=== PATIENT | male | born 1985 | race Caucasian/White ===

== ENCOUNTER 2017-08-20 16:13 | Emergency (ER) | payer MEDICARE ==
[~2017-08-20] VITALS: Ht 185.4 cm; Wt 143.3 kg
[2017-08-20] MEDS ORDERED: KETOROLAC 30 MG/ML VIAL. ONE (16:44)
[2017-08-20] MEDS ORDERED: cefTRIAXone SODIUM 1 GM VIAL IV ONE (16:44)
[2017-08-20] MEDS ORDERED: LIDOCAINE 1% Multi-Dose 20 ML VIAL. ONE (16:45)
[2017-08-20] MEDS ORDERED: PENI500T PO (16:55)
[2017-08-20] MEDS ORDERED: NAPR-683 PO (16:55)
[2017-08-20] MEDS ORDERED: HYDR-971 PO (16:55)
--- NOTE | 2017-08-20 16:55 | PHYS DOC ---
Past History Past Medical History: Other Additional Past Medical Histor: chronic back pain Past Surgical History: No Surgical History Smoking: Quit Less Than 1 Year Alcohol Use: None Drug Use: None Adult General Chief Complaint Chief Complaint: DENTAL PROBLEM HPI HPI 32-year-old male patient complaining of left upper jaw and dental pain for the last 2 days as a constant pain that getting worse with chewing and talking to take his pain 10 over 10. Patient complaining of swelling of his face without fever and chills and shortness of breath. Patient states she has broken tooth about 2 months ago but did not follow up with her dentist. Review of Systems Review of Systems Constitutional: Denies fever or chills [] Eyes: Denies change in visual acuity, redness, or eye pain [] HENT: Denies nasal congestion or sore throat, reports dental pain[] Respiratory: Denies cough or shortness of breath [] Cardiovascular: No additional information not addressed in HPI [] GI: Denies abdominal pain, nausea, vomiting, bloody stools or diarrhea [] : Denies dysuria or hematuria [] Musculoskeletal: Denies back pain or joint pain [] Integument: Denies rash or skin lesions [] Neurologic: Denies headache, focal weakness or sensory changes [] Endocrine: Denies polyuria or polydipsia [] All other systems were reviewed and found to be within normal limits, except as documented in this note. Current Medications Current Medications Current Medications Medications (Trade) Dose Ordered Sig/Ilsa Start Time Stop Time Status Last Admin Dose Admin Ceftriaxone Sodium (Rocephin Im) 1 gm 1X ONCE 08/20/17 16:45 08/20/17 16:46 UNV Ceftriaxone Sodium (Rocephin) 1 gm STK-MED ONCE 08/20/17 16:44 08/20/17 16:45 DC Ketorolac Tromethamine (Toradol) 30 mg STK-MED ONCE 08/20/17 16:44 08/20/17 16:45 DC Lidocaine HCl 20 ml STK-MED ONCE 08/20/17 16:45 08/20/17 16:46 DC Allergies Allergies Allergies Coded Allergies Type Severity Reaction Last Updated Verified No Known Drug Allergies 08/20/17 No Physical Exam Physical Exam Constitutional: Well developed, well nourished, moderate distress, non-toxic appearance. [] HENT: Normocephalic, atraumatic, bilateral external ears normal, oropharynx moist, no oral exudates, nose normal, left lower jaw and fascial edema and mild erythema and tenderness, large dental cavity in the left upper molar #3 with tenderness and gum inflammation, remaining root in molar #4 in left upper jaw with tenderness and abscess. [] Eyes: PERRLA, EOMI, conjunctiva normal, no discharge. [] Neck: Normal range of motion, no tenderness, supple, no stridor. [] Cardiovascular:Heart rate regular rhythm, no murmur [] Lungs & Thorax: Bilateral breath sounds clear to auscultation [] Neurologic: Alert and oriented X 3, normal motor function, normal sensory function, no focal deficits noted. [] Psychologic: Affect normal, judgement normal, mood normal. [] Current Patient Data Vital Signs Vital Signs Date Time Temp Pulse Resp B/P (MAP) Pulse Ox O2 Delivery O2 Flow Rate FiO2 08/20/17 16:13 97.7 101 18 98 Room Air EKG EKG [] Radiology/Procedures Radiology/Procedures [] Course & Med Decision Making Course & Med Decision Making Evaluation of patient in ER showed 32-year-old male patient with dental abscess and facial cellulitis that treated with Rocephin IM and Toradol in ER and felt better. Patient instructed to follow up with his dentist in 7-10 days. Dragon Disclaimer Dragon Disclaimer This electronic medical record was generated, in whole or in part, using a voice recognition dictation system. Departure Departure: Impression: Primary Impression: Dental abscess Additional Impression: Facial cellulitis Disposition: HOME, SELF-CARE (at 1653) Condition: IMPROVED Referrals: PCP,NO (PCP) Patient Instructions: Cellulitis, Dental Abscess Additional Instructions: Follow-up with the dentist in 5-7 days Follow-up with your primary care physician in 3-5 days Return to ER if not getting better Scripts Naproxen (NAPROSYN) 500 Mg Tablet 1 TAB PO BID, #20 TAB 1 Refill Prov: RANJAN CALLES MD 08/20/17 Hydrocodone Bit/Acetaminophen (NORCO 5-325 TABLET) 1 Each Tablet 1 TAB PO PRN Q6HRS PRN for PAIN, #14 TAB 0 Refills Prov: RANJAN CALLES MD 08/20/17 Penicillin V Potassium (PENICILLIN V POTASSIUM) 500 Mg Tablet 1 TAB PO QID, #40 TAB Prov: RANJAN CALLES MD 08/20/17 Problem Qualifiers RANJAN CALLES MD August 20, 2017 16:55
[2017-08-20] MEDS ORDERED: KETOROLAC 60 MG/2 ML VIAL. IM ONE (17:00)
[2017-08-20] MEDS ORDERED: cefTRIAXone IM 1 GM VIAL IM ONE (17:00)
[2017-08-20 17:01] VITALS: BP 161/114
== END 2017-08-20 17:07 | disposition home or self-care (01) ==
LOC: ER 16:13
DX: K04.7 Periapical abscess without sinus (principal); L03.211 Cellulitis of face; G89.29 Other chronic pain; Z87.891 Personal history of nicotine dependence
CPT/HCPCS: 96372; 99284; J0696; J1885

== ENCOUNTER 2021-04-27 17:20 | Emergency (ER) | payer MEDICARE ==
[~2021-04-27] VITALS: Ht 185.4 cm; Wt 130.0 kg
[~2021-04-27 17:20] MED LIST: HYDR-3165 PO; NAPR-683 PO; PENI500T PO
[2021-04-27] MEDS ORDERED: IOHEXOL 350 MG/ML 100 ML VIAL. IV ONE (18:15)
--- NOTE | 2021-04-27 19:16 | PHYS DOC ---
Past History Past Medical History: Other Additional Past Medical Histor: chronic back pain, COVID+ 04/2021 (GUALBERTO BELLO) Past Surgical History: No Surgical History (GUALBERTO BELLO) Smoking: Quit Less Than 1 Year Alcohol Use: None Drug Use: None (GUALBERTO BELLO) General Adult EDM: Chief Complaint: LOWER EXT PAIN HPI: HPI: Patient is a 35 year old male who presents with 2-day history of shortness of breath and left lower extremity pain. Patient reports that he was COVID- positive 20 days ago. He states that his symptoms improved, he felt better and had no lingering symptoms. 2 days ago, his shortness of breath returned. He denies chest pain, palpitations and cough. He states that he does have left- sided low back pain with sciatica. Originally, he thought maybe his left lower extremity pain was related to that. Overall, he states he just feels "off" and "hazy." Patient is "prediabetic" on metformin, but he has been out of metformin for approximately 3 days. (GUALBERTO BELLO) Review of Systems: Review of Systems: Constitutional: Denies fever, chills or generalized weakness Eyes: Denies change in visual acuity, visual field deficits or discharge HENT: Denies ear pain, nasal congestion or sore throat Respiratory: See HPI Cardiovascular: Denies chest pain, palpitations or edema GI: Denies abdominal pain, nausea, vomiting, bloody stools or diarrhea : Denies dysuria or hematuria Musculoskeletal: See HPI Integument: Denies rash or other skin lesion Neurologic: Denies headache, focal weakness or sensory changes (GUALBERTO BELLO) Current Medications: Current Meds: Current Medications Medications (Trade) Dose Ordered Sig/Ilsa Start Time Stop Time Status Last Admin Dose Admin Iohexol (Omnipaque 350 Mg/ml) 100 ml 1X ONCE 04/27/21 18:15 04/27/21 18:30 DC 04/27/21 18:51 100 ML Lorazepam (Ativan Inj) 1 mg 1X ONCE 04/27/21 19:15 04/27/21 19:16 (GUALBERTO BELLO) Allergies: Allergies: Allergies Coded Allergies Type Severity Reaction Last Updated Verified No Known Drug Allergies 08/20/17 No (GUALBERTO BELLO) Physical Exam: PE: Constitutional: Obese, well-groomed, no acute distress, non-toxic appearance. HENT: Normocephalic, atraumatic, bilateral external ears normal, nose normal. Eyes: EOMI, conjunctiva normal, no discharge. Neck: Normal range of motion, no stridor. Cardiovascular: Heart rate regular rhythm, no murmur. Lungs & Thorax: Bilateral breath sounds clear to auscultation. Skin: Warm, dry, no erythema, no rash. Extremities: Bilateral distal lower extremities with some erythema, negative Homans' sign, no tenderness, no cyanosis, no clubbing, ROM intact, no pitting edema, distal pulses 2+ and symmetrical. Neurologic: Alert and oriented x4, steady and symmetrical gait, no focal deficits noted. (GUALBERTO BELLO) Current Patient Data: Vital Signs: Vital Signs Date Time Temp Pulse Resp B/P (MAP) Pulse Ox O2 Delivery O2 Flow Rate FiO2 04/27/21 17:45 98.2 80 16 166/103 (124) 99 Room Air (GUALBERTO BELLO) Radiology/Procedures: Radiology/Procedures: PROCEDURE: CT ANGIOGRAPHY CHEST EXAMINATION: CTA Chest With IV contrast INDICATION:35 years, Male, CTA left lower extremity pain, redness, evaluate for pulmonary embolism. COMPARISON: None. TECHNIQUE: Spiral CTA was obtained from the jugular notch through the posterior costophrenic recess. 3-D MIPS, sagittal and coronal reformats were obtained. Exposure: One or more of the following individualized dose reduction techniques were utilized for this examination: 1. Automated exposure control 2. Adjustment of the mA and/or kV according to patient size 3. Use of iterative reconstruction technique. FINDINGS: LUNGS/PLEURA: Central airways are patent. Multifocal patchy areas of groundglass opacities in the right upper, right middle, left upper and subpleural left lower lobes. No pleural effusion or pneumothorax. There is a 1.0 cm pleural-based nodule in the right middle lobe. Additional, few sub-5 mm solid pulmonary nodules in the left upper and lower lobes. For example 3 mm nodule in the left upper lobe series 4 image 50. MEDIASTINUM: Multiple nonspecific prominent to mildly enlarged mediastinal and bilateral lymph nodes, the largest measures 1.3 cm in short axis, likely r eactive. The thoracic aorta and pulmonary arteries are normal in caliber. Evaluation for pulmonary embolism is limited due to contrast bolus timing. No central pulmonary embolism to the proximal lobar level The heart is normal in size. No pericardial effusion. No detectable calcified coronary atherosclerosis. The visualized thyroid and the esophagus are unremarkable. AXILLA/SOFT TISSUE: Multiple prominent bilateral axillary lymph nodes Symmetric bilateral gynecomastia. UPPER ABDOMEN: The visualized upper abdomen appears unremarkable. BONES: No evidence of acute fractures or aggressive osseous lesions. IMPRESSION: 1. Evaluation for pulmonary embolism is limited due to contrast bolus timing. No central pulmonary embolism to the proximal lobar level. 2. Multifocal patchy areas of groundglass opacities throughout both lungs, greatest in the right upper lobe. Findings are suspicious for multifocal pneumonia. Consider correlation with Covid 19 test. 3. Multiple nonspecific prominent to mildly enlarged mediastinal and bilateral axillary lymph nodes, probably reactive. 4. 1.0 cm pleural-based solid pulmonary nodule in the right middle lobe. Additional, sub-5 mm pulmonary nodules in the left lung. Findings favor infectious/inflammatory etiology. Fleischner Society guidelines for management of incidental pulmonary nodule (Radiology 2017): Multiple solid nodules > 8 mm: LOW-RISK patient (minimal or absent history of smoking and other known risk factors): CT at 3-6 months, then consider CT at 18-24 months. HIGH-RISK patient (history of smoking or other known risk factors): CT at 3-6 months, then at 18- 24 months. Electronically signed by: Arcadio Beavers MD (04/27/2021 8:23 PM) JACKIE PROCEDURE: VENOUS LOWER EXTREMITY LEFT EXAMINATION: US DPLX VENOUS EXTREMITY LOWER LT INDICATION: Left lower extremity pain, nausea, evaluate for DVT. COMPARISONS: None TECHNIQUE: Grayscale, color and spectral Doppler evaluation of the Left lower extremity deep venous system(s) was performed. FINDINGS: Left common femoral, femoral and popliteal veins are normally compressible and demonstrate normally directed and appropriately phasic flow with augmentation. Normal flow is present within the saphenofemoral junctions and deep femoral vein in the proximal thigh and the posterior tibial and peroneal veins in the proximal calf. IMPRESSION: No left lower extremity deep venous thrombosis. Electronically signed by: Arcadio Beavers MD (04/27/2021 8:02 PM) [facility] (GUALBERTO BELLO) Heart Score: C/O Chest Pain: No (GUALBERTO BELLO) Course & Med Decision Making: Course & Med Decision Making Pertinent Labs and Imaging studies reviewed. (See chart for details) Patient is a 35-year-old male who presents with 2-day history of shortness of breath and left lower extremity pain. Patient has history of testing COVID- positive 20 days ago with complete symptom resolution. Work-up today will include CT angio chest and left lower extremity venous ultrasound. Patient became claustrophobic while attempting to obtain CT angio. Patient at that time refused to continue. I talked to the patient and discussed anxiolytic medication and reattempt. He agreed. Patient was given 1 mg Ativan IV and CTA was reattempted. Unfortunately, XRT informed me that his IV was flow rate limited, and so the study was suboptimal. Patient at this time refuses to repeat, so we will see what is readable on CTA. Venous ultrasound negative for DVT. CT angio, as previously discussed, was limited. However, multifocal pneumonia is seen. Additionally, there is a solitary nodule noted. Patient was notified of all findings and given instruction for follow-up, including repeat CT imaging. Patient was given treatment instruction including antibiotics and incentive spirometry as well as return precautions. He understands and is agreeable to discharge plan. (GUALBERTO BELLO) Course & Med Decision Making Did not see or evaluate patient. Did not discuss patient with [facility]. Agree with [facility]'s work-up and disposition per note. (ALONDRA OCHOA MD) Dragon Disclaimer: Dragon Disclaimer: This electronic medical record was generated, in whole or in part, using a voice recognition dictation system. (GUALBERTO BELLO) Departure Departure: Impression: Primary Impression: Atypical pneumonia Additional Impressions: Long COVID Elevated blood pressure reading Disposition: HOME / SELF CARE / HOMELESS Condition: STABLE Referrals: PCP,NO (PCP) Patient Instructions: Incentive Spirometer, Pneumonia, Adult, [id number], Pulmonary Nodule, [id number], Type 2 Diabetes Mellitus, Adult, [id number] Additional Instructions: EMERGENCY DEPARTMENT GENERAL DISCHARGE INSTRUCTIONS Thank you for coming to [facility] (ED) today and trusting us with you care. We trust that you had a positive experience in our Emergency Dep artment. If you wish to speak to the department management, you may call the director at [phone]. YOUR FOLLOW UP INSTRUCTIONS ARE FOLLOWS: 1. Follow up with your primary care doctor. If you do not have a primary doctor, please ask for a resource list of physicians or clinics that may be able to assist you with follow up care. It is recommended that you have a CT of your chest repeated in 3-6 months and then again in 18-24 months due to your smoking history paired with the nodule seen on CT today. 2. The emergency provider has interpreted your images. The radiology personnel placement specialist also reviewed them. If there is a change in the findings, you will be notified in 48 hours when at all possible. 3. A lab test or culture has been done, your results will be reviewed and you will be notified if you need a change in treatment. 4. Follow instructions verbalized to you and refer to the printouts if needed. ADDITIONAL INSTRUCTIONS AND INFORMATION: 1. Your care today has been supervised by a physician who is specially trained in emergency care. Many problems require more than one evaluation for a complete diagnosis and treatment. We recommend that you schedule your follow up appointment as recommended to ensure complete treatment of you illness or injury. If you are unable to obtain follow up care and continue to have a problem, or if your condition worsens, we recommend that you return to the ED. 2. We are not able to safely determine your condition over the phone nor are we able to give sound medical advice over the phone. For these safety reasons, if you call for medical advice we will ask you to come to the ED for further evaluation. 3. If you have any questions regarding these discharge instructions please call the ED at [phone]. SAFETY INFORMATION: In the interest of safety, wellness, and injury prevention; we encourage you to wear your seat belt, if you smoke; quite smoking, and we encourage family to use a protective helmet for bicycling and other sporting events that present an i ncreased risk for head injury. IF YOUR SYMPTOMS WORSEN OR NEW SYMPTOMS DEVELOP, OR YOU HAVE CONCERNS ABOUT YOUR CONDITION; OR IF YOUR CONDITION WORSENS WHILE YOU ARE WAITING FOR YOUR FOLLOW UP APPOINTMENT; EITHER CONTACT YOUR PRIMARY CARE DOCTOR, THE PHYSICIAN WHOSE NAME AND NUMBER YOU WERE GIVEN, OR RETURN TO THE ED IMMEDIATELY. Scripts Azithromycin (AZITHROMYCIN TABLET) 250 Mg Tablet 1 PKG PO UD for pna for 5 Days, #6 TAB 0 Refills 2 the first day followed by 1 for days 2-5 Prov: GUALBERTO BELLO 04/27/21 GUALBERTO BELLO Apr 27, 2021 19:16 ALONDRA OCHOA MD Apr 27, 2021 20:58
--- NOTE | 2021-04-27 20:04 | RAD ---
EXAMINATION: US DPLX VENOUS EXTREMITY LOWER LT INDICATION: Left lower extremity pain, nausea, evaluate for DVT. COMPARISONS: None TECHNIQUE: Grayscale, color and spectral Doppler evaluation of the Left lower extremity deep venous s ystem(s) was performed. FINDINGS: Left common femoral, femoral and popliteal veins are normally compressible and demonstrate normally d irected and appropriately phasic flow with augmentation. Normal flow is present within the saphenofemoral junctions and deep femoral vein in the proximal thig h and the posterior tibial and peroneal veins in the proximal calf. IMPRESSION: No left lower extremity deep venous thrombosis. Electronically signed by: Arcadio Beavers MD (04/27/2021 8:02 PM) [facility]
[2021-04-27 20:11] VITALS: BP 180/106
--- NOTE | 2021-04-27 20:26 | RAD ---
EXAMINATION: CTA Chest With IV contrast INDICATION:35 years, Male, CTA left lower extremity pain, redness, evaluate for pulmonary embolism. COMPARISON: None. TECHNIQUE: Spiral CTA was obtained from the jugular notch through the posterior costophrenic recess. 3-D MIPS, sagittal and coronal reformats were obtained. Exposure: One or more of the following individualized dose reduction techniques were utilized for thi s examination: 1. Automated exposure control 2. Adjustment of the mA and/or kV according to patient size 3. Use of iterative reconstruction technique. FINDINGS: LUNGS/PLEURA: Central airways are patent. Multifocal patchy areas of groundglass opacities in the rig ht upper, right middle, left upper and subpleural left lower lobes. No pleural effusion or pneumothor ax. There is a 1.0 cm pleural-based nodule in the right middle lobe. Additional, few sub-5 mm solid pulmo nary nodules in the left upper and lower lobes. For example 3 mm nodule in the left upper lobe series 4 image 50. MEDIASTINUM: Multiple nonspecific prominent to mildly enlarged mediastinal and bilateral lymph nodes, the largest measures 1.3 cm in short axis, likely reactive. The thoracic aorta and pulmonary arterie s are normal in caliber. Evaluation for pulmonary embolism is limited due to contrast bolus timing. N o central pulmonary embolism to the proximal lobar level The heart is normal in size. No pericardial effusion. No detectable calcified coronary atherosclerosis. The visualized thyroid and the esophagus are unremarkable. AXILLA/SOFT TISSUE: Multiple prominent bilateral axillary lymph nodes Symmetric bilateral gynecomasti a. UPPER ABDOMEN: The visualized upper abdomen appears unremarkable. BONES: No evidence of acute fractures or aggressive osseous lesions. IMPRESSION: 1. Evaluation for pulmonary embolism is limited due to contrast bolus timing. No central pulmonary e mbolism to the proximal lobar level. 2. Multifocal patchy areas of groundglass opacities throughout both lungs, greatest in the right upp er lobe. Findings are suspicious for multifocal pneumonia. Consider correlation with Covid 19 test. 3. Multiple nonspecific prominent to mildly enlarged mediastinal and bilateral axillary lymph nodes, probably reactive. 4. 1.0 cm pleural-based solid pulmonary nodule in the right middle lobe. Additional, sub-5 mm pulmon sara nodules in the left lung. Findings favor infectious/inflammatory etiology. Fleischner Society bill delines for management of incidental pulmonary nodule (Radiology 2017): Multiple solid nodules > 8 mm : LOW-RISK patient (minimal or absent history of smoking and other known risk factors): CT at 3-6 mon ths, then consider CT at 18-24 months. HIGH-RISK patient (history of smoking or other known risk fact ors): CT at 3-6 months, then at 18-24 months. Electronically signed by: Arcadio Beavers MD (04/27/2021 8:23 PM) [facility]
[2021-04-27] MEDS ORDERED: AZIT250T6 PO (20:38)
== END 2021-04-27 20:48 | disposition home or self-care (01) ==
LOC: ER 17:41
DX: J18.9 Pneumonia, unspecified organism (principal); U07.1 COVID-19; R03.0 Elevated blood-pressure reading, without diagnosis of hypertension; M79.605 Pain in left leg; G89.29 Other chronic pain; Z87.891 Personal history of nicotine dependence
CPT/HCPCS: 71275; 93971; 96374; 99285; J2060; Q9967

== ENCOUNTER 2021-08-16 14:33 | Emergency (ER) | payer MEDICARE ==
[~2021-08-16] VITALS: Ht 185.4 cm; Wt 136.0 kg
[~2021-08-16 14:33] MED LIST changes: +AZIT250T6 PO
--- NOTE | 2021-08-16 14:52 | RAD ---
EXAM: Chest, single view. HISTORY: Chest pain. COMPARISON: None. FINDINGS: A frontal view of the chest is obtained. There is no infiltrate, pleural effusion or pneumo thorax. The heart is normal in size. IMPRESSION: No acute pulmonary finding. Electronically signed by: Raine Gtz MD (08/16/2021 2:50 PM) [id number]
--- NOTE | 2021-08-16 15:00 | PHYS DOC ---
Past History Past Medical History: Other Additional Past Medical Histor: chronic back pain, COVID+ 04/2021 Past Surgical History: No Surgical History Smoking: Quit Less Than 1 Year Alcohol Use: None Drug Use: None General Adult EDM: Chief Complaint: CHEST PAIN HPI: HPI: 36-year-old male presents with dizziness and chest pain. 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 He also developed some chest pain which he describes as an aching sensation. It was moderate in intensity went away while he was sitting in his vehicle. He currently has no pain. He feels generally tired. He denies fever or chills. Denies history of cardiac or lung problems. Review of Systems: Review of Systems: Constitutional: Denies fever or chills Eyes: Denies change in visual acuity HENT: Denies nasal congestion or sore throat Respiratory: Denies cough or shortness of breath Cardiovascular: Chest pain GI: Denies abdominal pain, nausea, vomiting, bloody stools or diarrhea : Denies dysuria Musculoskeletal: Denies back pain or joint pain Integument: Denies rash Neurologic: Dizziness. Denies headache, focal weakness or sensory changes Endocrine: Denies polyuria or polydipsia Lymphatic: Denies swollen glands Psychiatric: Denies depression or anxiety Allergies: Allergies: Allergies Coded Allergies Type Severity Reaction Last Updated Verified No Known Drug Allergies 08/20/17 No Physical Exam: PE: Constitutional: Well developed, well nourished, morbidly obese, no acute distress, non-toxic appearance. [] HENT: Normocephalic, atraumatic, bilateral external ears normal, oropharynx moist, no oral exudates, nose normal. [] Eyes: PERRLA, EOMI, conjunctiva normal, no discharge. [] Neck: Normal range of motion, no tenderness, supple, no stridor. [] Cardiovascular: Heart rate 89, regular rhythm, no murmur [] Lungs & Thorax: Bilateral breath sounds clear to auscultation [] Abdomen: Bowel sounds normal, soft, no tenderness, no masses, no pulsatile masses. [] Skin: Warm, dry, no erythema, no rash. [] Back: No tenderness, no CVA tenderness. [] Extremities: No tenderness, no cyanosis, no clubbing, ROM intact, no edema. [] Neurologic: Alert and oriented X 3, normal motor function, normal sensory function, no focal deficits noted. [] Psychologic: Affect normal, judgement normal, mood normal. [] EKG: EKG: Sinus rhythm, rate 89, normal axis, no ST elevation or depression. [] Radiology/Procedures: Radiology/Procedures: [] Impressions: EXAM: Chest, single view. HISTORY: Chest pain. COMPARISON: None. FINDINGS: A frontal view of the chest is obtained. There is no infiltrate, pleural effusion or pneumothorax. The heart is normal in size. IMPRESSION: No acute pulmonary finding. Electronically signed by: Raine Gtz MD (08/16/2021 2:50 PM) [id number] DICTATED AND SIGNED BY: RAINE GTZ MD DATE: 08/16/211449 CC: ANGELO ENCARNACION DO; PCP,NO ~ Heart Score: C/O Chest Pain: Yes HEART Score for Chest Pain: HEART Score for Chest Pain Response (Comments) Value History Slighlty/Non-Suspicious 0 ECG Normal 0 Age < 45 0 Risk Factors 1 or 2 Risk Factors 1 Total 1 Risk Factors: Risk Factors: DM, Current or recent (<one month) smoker, HTN, HLP, family history of CAD, obesity. Risk Scores: Score 0 - 3: 2.5% MACE over next 6 weeks - Discharge Home Score 4 - 6: 20.3% MACE over next 6 weeks - Admit for Clinical Observation Score 7 - 10: 72.7% MACE over next 6 weeks - Early Invasive Strategies Course & Med Decision Making: Course & Med Decision Making Pertinent Labs and Imaging studies reviewed. (See chart for details) The patient's EKG is negative for acute findings. His labs are unremarkable. His troponin is negative. His chest x-ray is negative for acute findings. His heart score is a 1. The patient may have just been affected by the heat at his workplace or the fact that he has had a lot of stress lately. It does not appea r to be cardiopulmonary in nature. He is stable for discharge at this time. [] Dragon Disclaimer: Dragon Disclaimer: This electronic medical record was generated, in whole or in part, using a voice recognition dictation system. Departure Departure: Impression: Primary Impression: Chest pain Disposition: HOME / SELF CARE / HOMELESS Condition: STABLE Referrals: PCP,NO (PCP) Patient Instructions: Chest Pain (Nonspecific), [id number] ANGELO ENCARNACION DO August 16, 2021 14:59
[2021-08-16 15:03] VITALS: BP 143/82
[2021-08-16 15:18] LABS: CALCIUM 9.6 mg/dL (8.5-10.1); CREATININE 0.8 mg/dL (0.7-1.3); GFR 108.2; POTASSIUM 4.1 mmol/L (3.5-5.1)
[2021-08-16 15:24] LABS: ALBUMIN 3.9 g/dL (3.4-5.0); TOTAL BILIRUBIN 0.5 mg/dL (0.2-1.0); TOTAL PROTEIN 7.7 g/dL (6.4-8.2)
[2021-08-16 15:25] LABS: BASO % 0 % (0-3); EOS % 0 % (0-3); HEMATOCRIT 44.1 % (39.0-53.0); HEMOGLOBIN 14.8 g/dL (13.0-17.5); LYMPH # 3.9 x10^3/uL (1.0-4.8); LYMPH % 32 % (24-48); MEAN CORPUSCULAR HEMOGLOBIN 29 pg (25-35); MEAN CORPUSCULAR HGB CONC 34 g/dL (31-37); MEAN CORPUSCULAR VOLUME 88 fL (79-100); MONO # 0.9 x10^3/uL (0.0-1.1); MONO % 8 % (0-9); NEUT % 59 % (31-73); PLATELET COUNT 219 x10^3/uL (140-400); RED BLOOD COUNT 5.04 x10^6/uL (4.30-5.70); RED CELL DISTRIBUTION WIDTH 13.6 % (11.5-14.5); WHITE BLOOD COUNT 11.9 x10^3/uL (4.0-11.0)
--- NOTE | 2021-08-16 16:45 | EKG ---
[address] [address] Test Date: 2021-08-16 Test Time: 14:44:21 Pat Name: SIRENA CORONEL Department: Room: Gender: M [employer]: DELILAH : 1985 Requested By: ANGELO ENCARNACION Order Number: [id number] Reading MD: Miki Castillo Measurements Intervals [place] Rate: 89 P: 49 VT: 156 QRS: 9 QRSD: 90 T: 56 QT: 354 QTc: 432 Interpretive Statements SINUS RHYTHM NORMAL ECG RI6.02 No previous ECG available for comparison Electronically Signed On 08-16-2021 17:04:13 CDT by Miki Castillo
== END 2021-08-16 16:23 | disposition home or self-care (01) ==
LOC: ER 14:33
DX: R07.89 Other chest pain (principal); R42 Dizziness and giddiness; E66.01 Morbid (severe) obesity due to excess calories; G89.29 Other chronic pain; Z68.39 Body mass index [BMI] 39.0-39.9, adult; Z87.891 Personal history of nicotine dependence
CPT/HCPCS: 36415; 71045; 80053; 84484; 85025; 93005; 99285